=== PATIENT | male | born 1960 | race Caucasian/White ===

== ENCOUNTER 2017-07-05 08:53 | Emergency (ER) | payer OTHER ==
[~2017-07-05] VITALS: Ht 175.3 cm; Wt 113.5 kg
[~2017-07-05 08:53] MED LIST: ASPI-825 PO; CARV25 PO; LISI40TA4 PO
[2017-07-05] MEDS ORDERED: METF500T4 PO (09:29)
[2017-07-05] MEDS ORDERED: GLIP2.5ER PO (09:30)
[2017-07-05 09:53] LABS: GLUCOSE,POINT OF CARE 150 MG/DL (70-110)
[2017-07-05 09:57] VITALS: BP 146/99
== END 2017-07-05 10:04 | disposition home or self-care (01) ==
LOC: EMS 08:54
DX: H53.8 Other visual disturbances (principal); I11.0 Hypertensive heart disease with heart failure; I50.9 Heart failure, unspecified; E11.9 Type 2 diabetes mellitus without complications; I25.10 Atherosclerotic heart disease of native coronary artery without angina pectoris; Z79.82 Long term (current) use of aspirin
CPT/HCPCS: 82962; 99282

== ENCOUNTER 2017-08-22 21:33 | Emergency (ER) | payer OTHER ==
[~2017-08-22] VITALS: Ht 175.3 cm; Wt 113.5 kg
[~2017-08-22 21:33] MED LIST changes: +GLIP2.5ER PO; +METF500T4 PO
[2017-08-22] MEDS ORDERED: FURO20 PO (21:41)
[2017-08-22 21:48] LABS: GLUCOSE,POINT OF CARE 168 MG/DL (70-110)
[2017-08-22] MEDS ORDERED: KETOROLAC TROMETHAMINE 30 MG/ML VIAL IM ONE (23:15)
[2017-08-23 00:52] VITALS: BP 144/88
== END 2017-08-23 01:40 | disposition home or self-care (01) ==
LOC: EMS 21:39
DX: M79.602 Pain in left arm (principal); I11.0 Hypertensive heart disease with heart failure; I50.9 Heart failure, unspecified; I25.10 Atherosclerotic heart disease of native coronary artery without angina pectoris; E11.9 Type 2 diabetes mellitus without complications; F17.210 Nicotine dependence, cigarettes, uncomplicated; Z79.82 Long term (current) use of aspirin
CPT/HCPCS: 73030; 73080; 82962; 96372; 99284; J1885

== ENCOUNTER 2017-10-30 00:18 | Emergency (ER) | payer SELFPAY ==
[~2017-10-30] VITALS: Ht 175.3 cm; Wt 113.6 kg
[~2017-10-30 00:18] MED LIST changes: +FURO20 PO; -GLIP2.5ER PO
[2017-10-30 00:33] LABS: GLUCOSE,POINT OF CARE 229 MG/DL (70-110)
[2017-10-30 00:57] LABS: BASOPHILS % (AUTO) 0.7 % (0.0-2.0); HEMATOCRIT 52.5 % (41-53); HEMOGLOBIN 17.9 g/dL (13.5-17.5); LYMPHOCYTES % (AUTO) 22.7 % (22.0-44.0); MEAN CORPUSCULAR HEMOGLOBIN 31.1 pg (26.0-34.0); MEAN CORPUSCULAR HGB CONC 34.1 G/dL (31.0-37.0); MEAN CORPUSCULAR VOLUME 91 fL (80-100); MONOCYTES # (AUTO) 0.7 K/uL (0.1-1.0); MONOCYTES % (AUTO) 7.4 % (2.0-9.0); NEUTROPHILS # (AUTO) 5.8 K/uL (1.8-7.7); NEUTROPHILS % (AUTO) 65.2 % (40.0-70.0); PLATELET COUNT (AUTO) 160 K/uL (150-450); RED BLOOD CELL COUNT(AUTO) 5.76 MIL/uL (4.50-5.90); RED CELL DISTRIBUTION WIDTH 12.7 % (11.5-14.5)
[2017-10-30 01:00] LABS: APPEARANCE,URINE CLEAR (CLEAR); BILIRUBIN,URINE NEGATIVE (NEGATIVE); GLUCOSE, URINE (UA) NEGATIVE (NEGATIVE); KETONES,URINE NEGATIVE (NEGATIVE); LEUKOCYTE ESTERASE ,URINE NEGATIVE (NEGATIVE); NITRATE,URINE NEGATIVE (NEGATIVE); OCCULT BLOOD,URINE NEGATIVE (NEGATIVE); PROTEIN,URINE NEGATIVE (NEGATIVE); UROBILINOGEN,URINE 0.2 mg/dL (<=1.0)
[2017-10-30 01:02] LABS: ANION GAP 3 mmol/L (8-16); CALCIUM, TOTAL 9.5 mg/dL (8.8-10.5); CARBON DIOXIDE 34 mmol/L (22-29); CHLORIDE 101 mmol/L (98-107); CREATININE 1.11 mg/dL (0.60-1.30); GLOMERULAR FILTR. RATE CALC > 60 mL/min (>60); GLUCOSE,RANDOM 208 mg/dL (70-110); POTASSIUM 4.1 mmol/L (3.5-5.1); SODIUM SERUM 138 mmol/L (136-145); UREA NITROGEN, BLOOD 12 mg/dL (7-18)
[2017-10-30 01:09] LABS: ALANINE AMINOTRANSFERASE 56 U/L (12-78); ALBUMIN 3.7 g/dL (3.4-5.0); ALKALINE PHOSPHATASE 68 U/L (46-116); ASPARTATE AMINOTRANSFERASE 21 U/L (15-37); BILIRUBIN,TOTAL 0.3 mg/dL (0.1-1.0); LIPASE 1995 U/L (73-393); TOTAL PROTEIN, SERUM 7.8 g/dL (6.4-8.2)
[2017-10-30] MEDS ORDERED: SODIUM CHLORIDE 0.9% 1,000 ML IV ONE (03:30)
[2017-10-30] MEDS ORDERED: KETOROLAC TROMETHAMINE 30 MG/ML VIAL IVP ONE (03:30)
[2017-10-30 05:23] VITALS: BP 147/93
== END 2017-10-30 05:43 | disposition home or self-care (01) ==
LOC: EMS 00:19
DX: R10.11 Right upper quadrant pain (principal); R74.8 Abnormal levels of other serum enzymes; I11.0 Hypertensive heart disease with heart failure; I50.9 Heart failure, unspecified; I25.10 Atherosclerotic heart disease of native coronary artery without angina pectoris; E11.9 Type 2 diabetes mellitus without complications; F17.210 Nicotine dependence, cigarettes, uncomplicated
CPT/HCPCS: 36415; 76705; 80053; 81003; 82962; 83690; 85025; 96361; 96374; 99285; J1885; J7030

== ENCOUNTER 2018-02-04 09:12 | Emergency (ER) | payer OTHER ==
[~2018-02-04] VITALS: Ht 175.3 cm; Wt 102.0 kg
[~2018-02-04 09:12] MED LIST changes: -METF500T4 PO; +METF500T6 PO
[2018-02-04 09:29] LABS: GLUCOSE,POINT OF CARE 262 MG/DL (70-110)
[2018-02-04] MEDS ORDERED: PROPARACAINE HCL 0.5% 15 ML OPHTHALMIC SOLUTION OS ONE (09:45)
[2018-02-04 09:47] VITALS: BP 151/93
[2018-02-04] MEDS ORDERED: PROPARACAINE/FLUORESCEIN SOD 0.5-0.25% 0.5 ML OPHTHALMIC SOLUTION OS ONE (10:00)
== END 2018-02-04 10:30 | disposition home or self-care (01) ==
LOC: EMS 09:13
DX: H10.9 Unspecified conjunctivitis (principal); I11.0 Hypertensive heart disease with heart failure; I50.9 Heart failure, unspecified; I25.10 Atherosclerotic heart disease of native coronary artery without angina pectoris; E11.9 Type 2 diabetes mellitus without complications; F17.210 Nicotine dependence, cigarettes, uncomplicated
CPT/HCPCS: 82962; 99283; Z7610